=== PATIENT | male | born 1990 | race African-American/Black ===

== ENCOUNTER 2016-08-07 22:50 | Emergency (ER) | payer OTHER ==
[~2016-08-07] VITALS: Ht 188 cm; Wt 97.1 kg
[~2016-08-07 22:50] MED LIST: BACITRACIN15 GM TOPIC; BACTRIM DS TAB1 EAC1 ORAL; BENADRYL50 MG ORAL; CYCLOBENZAPRINE10 MG ORAL; IBUPROFEN600 MG ORAL; IBUPROFEN800 M1 PO; KEFLEX500 MG ORAL; NKM; NORCO 5-325 TA1 EAC1 ORAL; NORCO 5-325 TA1 EACH ORAL; PREDNISONE50 MG ORAL
[2016-08-07] MEDS ORDERED: BACTRIM DS TAB1 EAC1 ORAL (23:27)
[2016-08-07] MEDS ORDERED: BACTROBAN15 GM TOPIC (23:28)
--- NOTE | 2016-08-07 23:28 | Emergency Room Report ---
History of Present Illness General Chief Complaint: Skin Rash/Abscess Source: Patient Present Illness HPI Is a 25-year-old male with no significant past medical history. He presents with a rash to his neck area the last to 3 days. No fever or chills. No nausea no vomiting. No redness. No other complaint. Allergies: Coded Allergies: No Known Allergies (Unverified , 07/19/14) Patient History Past Medical History: see triage record, old chart reviewed Past Surgical History: none Pertinent Family History: none Social History: Denies: smoking Immunizations: other Reviewed Nursing Documentation: PMH: Agreed, PSxH: Agreed Nursing Documentation-PM Past Medical History: No Stated History Review of Systems Eye: Denies: blurred vision, eye pain ENT: Denies: ear pain, nose congestion, throat swelling Respiratory: Denies: cough, shortness of breath Cardiovascular: Denies: chest pain, palpitations Gastrointestinal: Denies: abdominal pain, diarrhea, nausea, vomiting Musculoskeletal: Denies: back pain, joint pain Skin: Denies: rash Neurological: Denies: headache, numbness Endocrine: Denies: increased thirst, increased urine Hematologic/Lymphatic: Denies: easy bruising All Other Systems: negative except mentioned in HPI Physical Exam Vital Signs Date Time Temp Pulse Resp B/P Pulse Ox O2 Delivery O2 Flow Rate FiO2 08/07/16 22:53 98.1 77 14 131/85 100 Room Air vitals normal Sp02 EP Interpretation: reviewed, normal General Appearance: well appearing, no apparent distress, alert Head: normocephalic, atraumatic Eyes: bilateral eye EOMI, bilateral eye PERRL ENT: hearing grossly normal, normal pharynx Neck: full range of motion, supple, no meningismus, other - He has multiple small redness at the base of the hair follicles of his cheng on his neck. Respiratory: chest non-tender, lungs clear, normal breath sounds Cardiovascular #1: regular rate, rhythm, no murmur Gastrointestinal: normal bowel sounds, non tender, no mass, no organomegaly, no bruit, non-distended Musculoskeletal: back normal, gait/station normal, normal range of motion Neurologic: alert, oriented x3 Psychiatric: mood/affect normal Skin: warm/dry Medical Decision Making Diagnostic Impression: Primary Impression: Folliculitis ER Course Patient presents with cellulitis/folliculitis. No abscess. Nothing to I&D. Most likely MRSA. We'll discharge home. Antibiotics given. Last Vital Signs Date Time Temp Pulse Resp B/P Pulse Ox O2 Delivery O2 Flow Rate FiO2 08/07/16 22:53 98.1 77 14 131/85 100 Room Air Status: improved Disposition: HOME, SELF-CARE Condition: Stable Scripts Mupirocin (BACTROBAN CR) 15 Gm Cream..g. 1 APPLIC TOPIC THREE TIMES A DAY, #30 GM Prov: SARAH GEORGES M.D. 08/07/16 Trimethoprim/Sulfamethoxazole 160/800* (BACTRIM DS TABLET*) 1 Each Tablet 1 TAB ORAL Q12H, #14 TAB 0 Refills Prov: SARAH GEORGES M.D. 08/07/16 Referrals: [facility],REFERRIN (PCP) Additional Instructions: Follow up with your doctor in 7 days. Return if worse. SARAH GEORGES M.D. Aug 07, 2016 23:28
[2016-08-07] MEDS ORDERED: Bactrim DS (160mg/800mg) tab ORAL ONE (23:30)
[2016-08-07 23:40] VITALS: BP 131/85
[2016-08-07 23:41] VITALS: BP 130/80
== END 2016-08-07 23:42 | disposition home or self-care (01) ==
LOC: EMR 23:24
DX: L73.9 Follicular disorder, unspecified (principal)
CPT/HCPCS: 99284